=== PATIENT | female | born 1990 | race Caucasian/White ===

== ENCOUNTER 2023-08-04 09:15 | Outpatient (CLI) | payer BC, SELFPAY | END 2023-08-04 09:16 | disposition home or self-care (01) | LOC: NFLDREF 08-08 14:37 | PROVIDERS: PCP Family Medicine; Referring Provider Family Medicine; Visit Provider Family Medicine | DX: Z00.00 Encounter for general adult medical examination without abnormal findings (principal); Z13.6 Encounter for screening for cardiovascular disorders; Z13.1 Encounter for screening for diabetes mellitus | CPT/HCPCS: 80061; 82947; 85025 ==

== ENCOUNTER 2024-07-14 16:33 | Outpatient (CLI) | payer BC, SELFPAY ==
--- OUTSIDE RECORDS SUMMARY | 2024-07-15 06:34 | XMS_ITS | Clinical Summary ---
Author Organization [facility] Address [address] [place] [address] Care Team Providers Care Human Services Worker Name Role Phone Elsewhere, Pcp Primary Care Provider Unavailabl e Source Comments Patient records contain information from all sites at [facility]. For routine questions regarding patient records, call [phone] during business hours, M-F 8:00 AM - 5:00 PM Central Time. Record requests for emergency care only can be directed to [phone] at any time.[facility] Allergies No known active allergies Medications nitrofurantoin monohydrate (Macrobid) 100 mg capsule Take 1 capsule (100 mg total) by mouth 2 (two) times a day for 7 days. 14 capsule 4 06/18/20 24 fluconazole (Diflucan) 150 mg tablet Take 1 tablet (150 mg total) by mouth once a week for 14 days. 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, in [place], [place] [address] [place] [phone] Manjinder Resendez M.D. Dysuria (Primary Dx) 06/11/2024 Nurse Triage Department of Internal Medicine in [place], [place] [address] [place] [phone] Toro Dumont R.N. Urinary Frequency from Last 3 Months Family History Medical History Relation Name Comments Breast cancer Paternal Grandmother mariya garvin Relation Name Status Comments Paternal Grandmother mariya garvin Social History Tobacco Use Types Packs/Day Years Used Date Smoking Tobacco: Every Day Cigarettes 0.3 17.8 Started: 2006 Smokeless Tobacco: Never Tobacco Cessation:Ready to Q uit: Not Asked; Counseling Given: Not Answered Alcohol Use Standard Drinks/Week Comments Yes 1 (1 standard drink = 0.6 oz pur e alcohol) [facility] Utilities Answer Date Recorded In the past 12 months has e Re-APP, gas, oil, or water [employer] threatened to shut off services in your home? No 06/11/2024 Humiliation, Afraid, Rape, and Kick questionnair e Answer Date Recorded Within the last year, have y ou been afraid of your partner or ex-partner? No 03/31/2020 Within the last year, have y ou been humiliated or emotionally abused in other ways by your partner or ex-partner? No Within the last year, have y ou been kicked, hit, slapped, or otherwise physically hurt by your partner or ex-partner? No 03/31/2020 Within the last year, have y ou been raped or forced to have any kind of sexual activity by your partner or ex-partner? No 03/31/2020 Social Connection and Isolation Panel [NHANES] A nswer Date Recorded In a typical week, how many times do you talk on the phone with family, friends, or neighbors? Twice a week 03/31/20 20 How often do you get togethe r with friends or relatives? Twice a week 03/31/2020 How often do you attend chur ch or muslim services? Never 03/31/2020 Do you belong to any clubs o r organizations such as rastafarian groups, unions, fraternal or athletic groups, or school groups? No 03/31/2020 How often do you attend meet ings of the clubs or organizations you belong to? Never 03/31/2020 Are you , , di vorced, , never , or living with a partner? Living with partner 03/31/2020 AUDIT-C Answer Date Recorded Q1: How often do you have a drink containing alc ohol? 2-4 times a month 03/31/2020 Q2: How many drinks containi ng alcohol do you have on a typical day when you are drinking? 1 or 2 03/31/2020 Q3: How often do you have si x or more drinks on one occasion? Never 03/31/2020 Overall Financial Resource Strain (CARDIA) Answe r Date Recorded How hard is it for you to pa y for the very basics like food, housing, medical care, and heating? Not very hard 03/31/2020 PHQ-2 Answer Date Recorded PHQ-2 Score 0 06/11/2024 [facility] - Occupational Stress Questionnaire Answer Date Recorded Do you feel stress - tense, restless, nervous, or anxious, or unable to sleep at night because your mind is troubled all the time - these days? To some extent 03/31/2020 Exercise Vital Sign Answer Date Recorde d On average, how many days pe r week do you engage in moderate to strenuous exercise (like a brisk walk)? 3 days Minutes of Exercise per Session Not on file 06/11/2024 Hunger Vital Sign Answer Date Recorded Within the past 12 months, y ou worried that your food would run out before you got the money to buy more. Never true 06/11/20 Within the past 12 months, t he food you bought just didn't last and you didn't have money to get more. Never true 06/11/2024 PRAPARE - Transportation Answer Date Re corded In the past 12 months, has l ack of transportation kept you from medical appointments or from getting medications? No 05/17 In the past 12 months, has l ack of transportation kept you from meetings, work, or from getting things needed for daily living? No 06/11/2024 Nutrition Answer Date Recorded On average, how many serving s of fruits and vegetables do you eat per day (serving size is equal to 1 cup or approximately the size of a tennis ball)? 0-2 06/11/2024 Dental Answer Date Recorded Dental: Regular Dentist Yes 06/11/20 Employment Answer Date Recorded Employment status Employed and actively working without restrictions 06/11/2024 Housing Stability Answer Date Recorded What is your living situation today? I have a [facility] place to live 06/11/2024 Education Answer Date Recorded What is the highest level of school you have completed or the highest degree you have received? 12th grade 03/31/2020 Comments Unknown Sex and Gender Information Value Date Recorded Sex Assigned at Female 06/11/2024 10:41 AM CDT Legal Sex Female 11:42 AM PIG MACHINE SUPERVISOR Gender Identity Female 10/05/2020 7:42 PM PIG MACHINE SUPERVISOR Sexual Orientation Straight 10/05/2020 7: 42 PM PIG MACHINE SUPERVISOR Last Filed Vital Signs Vital Sign Reading Time Taken Comments Blood Pressure 113/76 06/11/2024 10:47 AM CDT Pulse 64 06/11/2024 10:47 AM CDT Temperature 36.1 ??C (97 ??F) 06/11/2024 10:47 AM CDT Respiratory Rate 14 03/31/2020 12:05 PM CDT Oxygen Saturation 100% 10/10/2020 8:20 AM PIG MACHINE SUPERVISOR Inhaled Oxygen Concentration - - Weight 81.9 kg (180 lb 8.9 oz) 06/11/2024 10:47 AM CDT Height - - Body Mass Index - - Plan of Treatment Health Maintenance Due Date Last Done Comments HIV Screening 1991 Hepatitis C Screening 1991 Pneumococcal vaccine (0-64 y ears) (1 of 2 - PCV) 1997 Tobacco Cessation counseling 03/31/2021 03/31/2020 Cervical/Vaginal Cancer Screening 10/27/2022 020, 10/16/2016 COVID-19 Vaccine (3 - 2023-2 5 season) 2024 11/13/2021, 01/31/2021 Influenza Vaccine (#1) 2024 1, 08/17/2009, 06/02/2009 DTaP,Tdap,and Td Vaccines (8 - Td or Tdap) 08/06/2033 08/06/2023, 11/25/2011, 01/24/2009, Additional history exists IPV Vaccines Completed 11/11/1996, 09/16, 04/13/1992, Additional history exists Hepatitis B Vaccines Completed 06/28/1998, 05/01/1998, 1991 HPV Vaccines Completed 09/14/2009, 12/11/2008, 04/17/2009, Additional history exists Depression Screening (Annual PHQ-2) Completed 06/11/2024, 06/11/2024 Procedures Procedure Name Priority Date/Time Associated Diagnosis Comments MD URINALYSIS AUTO WO MICRO STAT 06/11/2024 10:49 AM CDT URINALYSIS WITH MICROSCOPIC IF INDICATED, U STAT 06/11/2024 10:49 AM CDT Dysuria BACTERIAL CULTURE, AEROBIC + SUSC, URINE STAT 06/11/2024 10:49 AM CDT Dysuria from Last 3 Months Results * (ABNORMAL) Urinalysis with Microscopic if Indicated (06/11/2024 10:49 AM CDT) Source Urine, Urine, Midstream 06/11/2024 11:00 AM CDT OWAT Clarity Cloudy(A) Clear 06/11/2024 11:00 AM CDT OWAT Color Yellow 06/11/2024 11:00 AM CDT OWAT Comment: ----REFERENCE VALUE---- Colorless Yellow Safia Blood Negative Negative 06/11/2024 11:00 AM CDT OWAT Nitrite Negative Negative 06/11/2024 11:00 AM CDT OWAT Leukocyte Esterase Moderate(A) Negative 06/11/2024 11:00 AM CDT OWAT Protein Negative mg/dL 06/11/2024 11:00 AM CDT OWAT Comment: ----REFERENCE VALUE---- Negative Trace Glucose Negative Negative mg/dL 06/11/2024 11:00 AM CDT OWAT Ketone Trace(A) Negative mg/dL 06/11/2024 11:00 AM CDT OWAT Bilirubin Negative Negative 06/11/2024 11:00 AM CDT OWAT pH 7.0 5.0 - 8.0 06/11/2024 11:00 AM CDT OWAT Specific [place] 1.024 1.001 - 1.035 06/11/2024 11:00 AM CDT OWAT Urobilinogen 1.0 0.2 - 1.0 mg/dL 06/11/2024 11:00 AM CDT OWAT Urine (Urine, Midstream) 06/11/2024 10:49 AM CDT 06/11/2024 10:57 AM CDT us Manjinder Resendez M.D. LAB URINE ORDERABLES Final R esult Performing Organization Address City/[facility]/ZIP Co de Phone Number [facility] [address] [place] [address], [place] OWAT [facility] [place] [address] [place] [address] * (ABNORMAL) Microscopic Automated (06/11/2024 10:49 AM CDT) White Blood Cells 21-30(A) /hpf 06/11/2024 11:03 AM CDT OWAT Comment: ----REFERENCE VALUE---- Males: 0-3 Females: 0-10 Unknown: 0-10 Red Blood Cells Occ-2 0 - 2 /hpf 06/11/2024 11:03 AM CDT OWAT Hyaline Casts 1-3 /lpf 06/11/2024 11:03 AM CDT OWAT Squamous Cells 4-10 /hpf 06/11/2024 11:03 AM CDT OWAT Bacteria Present(A) None Seen 06/11/2024 11:03 AM CDT OWAT Urine 06/11/2024 10:4 9 AM CDT 06/11/2024 10:57 AM CDT us Manjinder Resendez M.D. LAB URINE ORDERABLES Final R esult Performing Organization Address City/[facility]/ZIP Co de Phone Number [facility] [address] [place] [address], [place] OWAT [facility] [place] [address], [place] [address] * Bacterial Culture, Aerobic + Susceptibility, Urine (06/11/2024 10:49 AM CDT) Urine Culture Urogenital microbiota, susceptibilities not performed per laboratory criteria. 06/12/2024 7:39 AM CDT MKTO Urine (Urine, Midstream) 06/11/2024 10:49 AM CDT 06/11/2024 1:43 PM CDT Comment:Specimen Source Site : Urine Manjinder Resendez M.D. LAB MICROBIOLOGY - GENERAL O RDERABLES Final Result [facility] [address] [place] [address], [place] [facility] [place] [address] [place] [address] from Last 3 Months Insurance [facility] Care Teams Human Services Worker Relationship Specialty Start Date End Date Elsewhere, Pcp PCP - General Internal Medicine 03/31/20
--- OUTSIDE RECORDS SUMMARY | 2024-07-15 06:34 | XMS_ITS ---
Author Organization [facility] Address [address] [place] [address] Care Team Providers Care Construction Rigger Name Role Phone Unavailable Unavailable Unavailable Surgery Details Not on file Complications Check Surgery Details section. Procedure Estimated Blood Loss Check Surgery Details section. Procedure Findings Check Surgery Details section. Procedure Specimens Taken Check Surgery Details section.
--- OUTSIDE RECORDS SUMMARY | 2024-07-15 06:34 | XMS_ITS | Referral Summary ---
Author Organization [facility] Address [address] [place] [address] Care Team Providers Care Radio Tower Technician Name Role Phone Elsewhere, Pcp Primary Care Provider Unavailabl e Source Comments Patient records contain information from all sites at [facility]. For routine questions regarding patient records, call [phone] during business hours, M-F 8:00 AM - 5:00 PM Central Time. Record requests for emergency care only can be directed to [phone] at any time.[facility] Encounters Date Type Department Care Team Description 06/11/2024 11:00 AM CDT Office Visit Department of Family Medicine, [facility], in [place], [place] [address] [place] [phone] Manjinder Resendez M.D. Dysuria (Primary Dx) 06/11/2024 Nurse Triage Department of Internal Medicine in [address] [phone] Toro Dumont R.N. 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 Never 03/31/2020 Do you belong to any clubs o r organizations such as sikhism groups, unions, fraternal or athletic groups, or [...] Answer Date Recorded PHQ-2 Score 0 06/11/2024 [facility] - Occupational Stress Questionnaire Answer Date Recorded [...] your living situation today? I have a [facility] place to live 06/11/2024 Education Answer Date Recorded What is the highest level of school you have completed or the highest degree you have received? 12th grade 03/31/2020 Comments Unknown Sex and Gender Information Value Date Recorded Sex Assigned at Female 06/11/2024 10:41 AM CDT Legal Sex Female 11:42 AM MANAGER ECONOMIC Gender Identity Female 10/05/2020 7:42 PM MANAGER ECONOMIC Sexual Orientation Straight 10/05/2020 7: 42 PM MANAGER ECONOMIC Last Filed Vital Signs Vital Sign Reading Time Taken Comments Blood Pressure 113/76 06/11/2024 10:47 AM CDT Pulse 64 06/11/2024 10:47 AM CDT Temperature 36.1 ??C (97 ??F) 06/11/2024 10:47 AM CDT Respiratory Rate 14 03/31/2020 12:05 PM CDT Oxygen Saturation 100% 10/10/2020 8:20 AM MANAGER ECONOMIC Inhaled Oxygen Concentration - - Weight 81.9 kg (180 lb 8.9 oz) 06/11/2024 10:47 AM CDT Height - - Body Mass Index - - Plan of Treatment Not on file Procedures Procedure Name Priority Date/Time Associated Diagnosis Comments [place] URINALYSIS AUTO WO MICRO STAT 06/11/2024 10:49 [...] 8.0 06/11/2024 11:00 AM CDT OWAT Specific [place] 1.024 1.001 - 1.035 06/11/2024 11:00 AM CDT OWAT Urobilinogen 1.0 0.2 - 1.0 mg/dL 06/11/2024 11:00 AM CDT OWAT Urine (Urine, Midstream) 06/11/2024 10:49 AM CDT 06/11/2024 10:57 AM CDT Manjinder Resendez M.D. LAB URINE ORDERABLES Final R esult [facility] [address] [place] [address], [facility] [place] [address] [place] [address] * (ABNORMAL) Microscopic Automated (06/11/2024 10:49 AM [...] M.D. LAB URINE ORDERABLES Final R esult [facility] [address] [place] [address], [place] OW[place] [facility] [place] [address] [place] [address] * Bacterial Culture, Aerobic + Susceptibility, Urine (06/11/2024 10:49 AM CDT) Urine Culture Urogenital microbiota, susceptibilities not performed per laboratory criteria. 06/12/2024 7:39 AM CDT [facility] Urine (Urine, Midstream) 06/11/2024 10:49 AM CDT 06/11/2024 1:43 PM CDT Comment:Specimen Source Site : Urine us Manjinder Resendez M.D. LAB MICROBIOLOGY - GENERAL O RDERABLES Final Result [facility] [address] [place] [address], [place] [facility] [place] [address] [place] [address] from Last 3 Months Insurance [facility] Care Teams Radio Tower Technician Relationship Specialty Start Date End Date Elsewhere, Pcp PCP - General Internal Medicine 03/31/20
--- OUTSIDE RECORDS SUMMARY | 2024-07-15 06:34 | XMS_ITS | Clinical Summary ---
Author Organization [facility] Address [place], [place] [address] Care Team Providers Care User Experience Lead Name Role Phone Clinic, No Pcp Or Primary Care Provider Unavaila ble Allergies No known active allergies Medications Medication Sig Dispensed Refills Start Date End Date Status naproxen (NAPROSYN) 500 mg tabletIndications:Sac rococcygeal disorders, not elsewhere classified Take 1 tablet (500 mg total) by mouth 2 (two) times a day as needed for pain . 60 tablet 03/31/2020 Active cyclobenzaprine (FLEXERIL) 10 mg tabletIndications:Sac rococcygeal disorders, not elsewhere classified Take 1 tablet (10 mg total) by mouth at bedtime as needed for muscle spasms. 20 tablet 03/31/2020 Active Digestive Enzymes capsule Take by mouth. 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 Immunizations Name Administration Dates Next Due DTP 10/10/1992, 2,01/14/1992,11/12/18 92 DTaP 11/11/1996 HIB PRP-OMP (PedvaxHIB) 01/14/1992 Hepatitis A (Peds) 07/30/2010 Hepatitis B (Peds) 10/17/1998,06/28/1998, 998 Human Papilloma Virus Vaccine 09/14/2009, 009,12/23/2008 06/23/2009 Influenza, IIV3 (Age >=3 years) 06/02/2009 MMR 11/11/1996,10/10/1992 Meningococcal Vaccine (Menactra) 12/23/2008 Oral Polio Vaccine 11/11/1996, 2,01/14/1992,11/12/18 92 Td (Age >=7 Years) 04/20/2004 Tdap 11/25/2011 Tuberculin (PPD) 11/11/1996 Family History Medical History Relation Name Comments Asthma Brother Onel Alcohol/Drug Father Gómez GI Disease Maternal Grandmother diverti culitis Seizures Mother Gladis Diabetes Other MGGF Relation Name Status Comments Brother Onel Father Gómez Maternal Grandmother Mother Gladis Other Social History Tobacco Use Types Packs/Day Years Used Date Smoking Tobacco: Every Day Cigarettes Smokeless Tobacco: Never Comments:onset age 16 Alcohol Use Standard Drinks/Week Comments Yes 0 (1 standard drink = 0.6 oz pur e alcohol) Sex and Gender Information Value Date Recorded Sex Assigned at Not on file Gender Identity Not on file Sexual Orientation Not on file Obstetrics History Last Filed Vital Signs Vital Sign Reading Time Taken Comments Blood Pressure 116/80 05/12/2021 11:27 AM CDT Pulse 74 05/12/2021 11:27 AM CDT Temperature 36.8 ??C (98.3 ??F) 05/12/2021 11:27 AM C DT Respiratory Rate 14 05/12/2021 11:27 AM CDT Oxygen Saturation 100% 05/12/2021 11:27 AM CDT Inhaled Oxygen Concentration - - Weight 77.6 kg (171 lb) 05/12/2021 11:37 AM CDT Height 174 cm (5' 8.5) 12/23/2008 3:49 PM CDT Body Mass Index - - Plan of Treatment Health Maintenance Due Date Last Done Comments Depression screening for age 12+ 2003 BMI (ht and wt on same day) for age 18+ 2009 Hepatitis C screening for age 18-79 2009 12/23/2008 Tetanus booster 11/24/2021 11/25/2011, 04/20/2004 Pap test for age 21-65 10/27/2022 0, 10/16/2016, 06/12/2011, Additional history exists COVID-19 vaccine series ( season) 2024 01/31/2021 Influenza for age 9-49 05/16/2024 06/02/2009 HIV for age 15-65 Completed 12/23/2008 Tdap Completed 11/25/2011 Pneumococcal series for age 6-64 Aged Out No longer eligible based on patient's age to complete this topic Procedures Procedure Name Priority Date/Time Associated Diagnosis Comments JUNIOR ESTIMATOR THIN PREP PAP SCREEN IMAGED Routine 10/27/2019 1:15 PM EARLY MORNING BABYSITTER ANTI HIV 1/2 Routine 12/23/2008 4:10 PM CDT Screening for STDs (Sexually Transmitted Diseases) ANTI HCV Routine 12/23/2008 4:10 PM CDT Screening for STDs (Sexually Transmitted Diseases) from Last 3 Months or Most Recently Relevant to Health Maintenance Results * JUNIOR ESTIMATOR THIN PREP PAP SCREEN IMAGED (10/27/2019 1:15 PM EARLY MORNING BABYSITTER) Case Report Gynecologic Cytology Report ? Case: [id number] ? Authorizing Provider: ??Court Collado MD ??Collected: ? 10/27/2019 1315 ? Ordering Location: ? [facility] ?Received: ?10/28/2019 1631 ? First Screen: ?Rosi, Diogenes ? Specimen: ?JUNIOR ESTIMATOR ThinPrep Vial Screening, Cervical/Vaginal ? 11/07/2019 11:36 AM [facility] [employer] [facility] INTERPRETATION/ RESULT NEGATIVE FOR INTRAEPITHELIAL LESION OR MALIGNANCY (NIL) (none) 11/07/2019 11:36 AM [facility] IMEN ADEQUACY Satisfactory for evaluation No endocervical component seen 11/07/2019 11:36 AM [facility] HPV REQUEST HPV if ASCUS 11/07/2019 11:36 AM [facility] Date of LMP 10/12/2019 11/07/2019 11:36 AM [facility] Menstrual Status 11/07/2019 11:36 AM [facility] Comment:iud Additional Information 11/07/2019 11:36 AM [facility] Comment: Interpreted at [facility] - [address] [place] [address], [place] [address] Automated Review Successful 11/07/2019 11:36 AM [facility] Comment:Specimen processed s uccessfully by automated combat information center officer device, ThinPrep Imaging System, [employer] Note The pap test is a screening technique, not a diagnostic procedure. It is used primarily to screen for squamous cancers and precursor lesions. Published studies have shown that it is subject to both false negative and false positive results. The pap test should not be used as the sole means to diagnose or exclude pre-malignant and malignant lesions. 11/07/2019 11:36 AM [facility] Other (Cervical/Vagina l) 10/27/2019 1:15 PM EARLY MORNING BABYSITTER 10/28/2019 4:31 PM EARLY MORNING BABYSITTER Court Collado MD PATHOLOGY/[facility] [address] [place] [address], [place] * ANTI HCV (12/23/2008 4:10 PM CDT) ANTI HCV Non-reacti ve [facility] Blood specimen (specimen) BLOOD SPECIMEN / Unknown 12/23/2008 4:10 PM CDT 12/24/2008 9:33 AM CDT Hever Mane DO SEND OUTS [facility] [place]NAL ZIP [address] [address] * ANTI HIV 1/2 (12/23/2008 4:10 PM CDT) ANTI HIV 1/2 Non-reacti ve [facility] Blood specimen (specimen) BLOOD SPECIMEN / Unknown 12/23/2008 4:10 PM CDT 12/24/2008 9:33 AM CDT Hever Mane DO SEND OUTS Performing Organization Address City/[facility]/ZIP Co de Phone Number [facility] INTERNAL ZIP [address] [place] [phone] from Last 3 Months or Most Recently Relevant to Health Maintenance Care Teams User Experience Lead Relationship Specialty Start Date End Date Clinic, No Pcp Or . PCP - General 05/12/21
--- OUTSIDE RECORDS SUMMARY | 2024-07-15 06:34 | XMS_ITS | Encounter Summary ---
Author Organization [facility] Address [address] [place] [address] Care Team Providers Care Supervisor Contingents Name Role Phone Elsewhere, Pcp Primary Care Provider Unavailabl e Reason for Visit * Reason Comments Urinary Problem 1 week * Appointment Request (Routine) - Closed Specialty Diagnoses / Procedures Referred By Pilar crouch Referred To Contact Family Medicine Referral ID Status Reason Start Date Expiration Date Visits Re quested Visits Authorized [id number] Closed 06/11/2024 06/11/2025 1 1 Encounter Details Date Type Department Care Team (Late st Contact Info) Description 06/11/2024 11:00 AM CDT Office Visit Department of Family Medicine, [facility], in [place], [place] [address] [phone] Manjinder Resendez M.D. [address] [phone] Dysuria (Primary Dx) Social History Tobacco Use Types Packs/Day Years Used Date Smoking Tobacco: Every Day Cigarettes 0.3 17.8 Started: 2006 Smokeless Tobacco: Never Tobacco Cessation:Ready to Q uit: Not Asked; Counseling Given: Not Answered Alcohol Use Standard Drinks/Week Comments Yes 1 (1 standard drink = 0.6 oz pur e alcohol) [facility] Utilities Answer Date Recorded In the past 12 months has e electric, gas, oil, or water company threatened to shut off services in your [...] often do you attend chur ch or methodist services? Never 03/31/2020 Do you belong to any clubs o r organizations such as roman catholic groups, unions, fraternal or athletic groups, or [...] Answer Date Recorded PHQ-2 Score 0 06/11/2024 [facility] of Occupat ional Health - Occupational Stress [...] money to buy more. Never true 06/11/20 24 Within the past 12 months, t he [...] your living situation today? I have a [facility] place to live 06/11/2024 Education Answer Date Recorded What is the highest level of school you have completed or the highest degree you have received? 12th grade 03/31/2020 Comments Unknown Sex and Gender Information Value Date Recorded Sex Assigned at Female 06/11/2024 10:41 AM CDT Legal Sex Female 11:42 AM STRIPE MARKER Gender Identity Female 10/05/2020 7:42 PM STRIPE MARKER Sexual Orientation Straight 10/05/2020 7: 42 PM STRIPE MARKER documented as of this encounter Last Filed Vital Signs Vital Sign Reading Time Taken Comments Blood Pressure 113/76 06/11/2024 10:47 AM CDT Pulse 64 06/11/2024 10:47 AM CDT Temperature 36.1 ??C (97 ??F) 06/11/2024 10:47 AM CDT Respiratory Rate - - Oxygen Saturation - - Inhaled Oxygen Concentration - - Weight 81.9 kg (180 lb 8.9 oz) 06/11/2024 10:47 AM CDT Height - - Body Mass Index - - documented in this encounter Progress Notes * Manjinder Resendez M.D. - 06/11/2024 11:00 AM CDT SUBJECTIVE CHIEF COMPLAINT/REASON FOR VISIT Karissa Kapadia is a 33 y.o. female that presents with concern for possible UTI. No other concerns today. She has had UTI episodes in the distant past. No fever, chills or back pain noted. CURRENT MEDICATIONS Current Outpatient Medications: fluconazole (Diflucan) 150 mg tablet, Take 1 tablet (150 mg total) by mouth once a week for 14 days., Disp: 2 tablet, Rfl: 0 nitrofurantoin monohydrate (Macrobid) 100 mg capsule, Take 1 capsule (100 mg total) by mouth 2 (two) times a day for 7 days., Disp: 14 capsule, Rfl: 0 ALLERGIES/CONTRAINDICATIONS No Known Allergies OBJECTIVE Vitals: 06/11/24 1047 BP: 113/76 Pulse: 64 Temp: 36.1 ??C PHYSICAL EXAMINATION General Appearance: No acute distress. Back: CVA areas not tender on exam. DIAGNOSTICS UA with 21-30 WBCs and bacteria. Culture pending. ASSESSMENT / PLAN Probable UTI. Macrobid prescribed. All questions are discussed and answered. Patient voices good understanding and agreement with our plan. Follow-up with primary care if not improving as expected orotherwise as needed. documented in this encounter Plan of Treatment Not on file documented as of this encounter Procedures Procedure Name Priority Date/Time Associated Diagnosis Comments URINALYSIS WITH MICROSCOPIC IF INDICATED, U STAT 06/11/2024 10:49 AM CDT Dysuria MT URINALYSIS AUTO WO MICRO STAT 06/11/2024 10:49 AM CDT BACTERIAL CULTURE, AEROBIC + SUSC, URINE STAT 06/11/2024 10:49 AM CDT Dysuria documented in this encounter Results * (ABNORMAL) Microscopic Automated (06/11/2024 10:49 AM [...] ORDERABLES Final R esult Performing Organization Address City/[facility] Co de Phone Number [facility] [address] [place] [address], [place] [facility] [facility] [place] [address] [place] [address] * Bacterial Culture, Aerobic + Susceptibility, Urine (06/11/2024 10:49 AM CDT) Pathologist [facility] Urine Culture Urogenital microbiota, susceptibilities not performed per laboratory criteria. 06/12/2024 7:39 AM CDT [facility] Urine (Urine, Midstream) 06/11/2024 10:49 AM CDT 06/11/2024 1:43 PM CDT Comment:Specimen Source Site : Urine us Manjinder Resendez M.D. LAB MICROBIOLOGY - GENERAL O RDERABLES Final Result Performing Organization Address City/[facility]/ZIP Co de Phone Number [facility] [address] [place] [address], [place] [facility] [place] [address] [place] [address] * (ABNORMAL) Urinalysis with Microscopic if Indicated [...] 8.0 06/11/2024 11:00 AM CDT OWAT Specific [place] 1.024 1.001 - 1.035 06/11/2024 11:00 AM CDT OWAT Urobilinogen 1.0 0.2 - 1.0 mg/dL 06/11/2024 11:00 AM CDT OWAT Urine (Urine, Midstream) 06/11/2024 10:49 AM CDT 06/11/2024 10:57 AM CDT us Manjinder Resendez M.D. LAB URINE ORDERABLES Final R esult [facility] [address] [place] [address], [place] [facility] [facility] [place] [address] [place] [address] documented in this encounter Visit Diagnoses Diagnosis Dysuria- Primary documented in this encounter Care Teams Supervisor Contingents Relationship Specialty Start Date End Date Elsewhere, Pcp PCP - General Internal Medicine 03/31/20 documented as of this encounter
--- OUTSIDE RECORDS SUMMARY | 2024-07-15 06:34 | XMS_ITS | Encounter Summary ---
Author Organization [facility] Address [address] [place] [address] Care Team Providers Care Police Communications Dispatcher Name Role Phone Elsewhere, Pcp Primary Care Provider Unavailabl e Reason for Visit * Reason Onset Date Comments Urinary Frequency 06/11/2024 Encounter Details Date Type Department Care Team ([facility] st Contact Info) Description 06/11/2024 Nurse Triage Department of Internal Medicine in [place], [place] [address] [place] [phone] Toro Dumont R.N. [address] [place] [phone] Urinary Frequency Social History Tobacco Use Types Packs/Day Years Used Date Smoking Tobacco: Every Day Cigarettes 0.3 17.8 Started: 2006 Smokeless Tobacco: Never Alcohol Use Standard Drinks/Week Comments Yes 1 (1 standard drink = 0.6 oz pur e alcohol) [facility] Utilities Answer Date Recorded In the past [address] [facility] path intelligence, gas, oil, or water [employer] threatened to shut off services in your [...] often do you attend chur ch or samaritan services? Never 03/31/2020 Do you belong to any clubs o r organizations such as mormonism groups, unions, fraternal or athletic groups, or [...] Answer Date Recorded PHQ-2 Score 0 06/11/2024 [facility] - Occupational Stress Questionnaire Answer Date [...] your living situation today? [facility] 06/11/2024 Education Answer Date Recorded What is the highest level of school you have completed or the highest degree you have received? 12th grade 03/31/2020 Comments Unknown Sex and Gender Information Value Date Recorded Sex Assigned at Female 06/11/2024 10:41 AM CDT Legal Sex Female 11:42 AM PURCHASING CLERK Gender Identity Female 10/05/2020 7:42 PM PURCHASING CLERK Sexual Orientation Straight 10/05/2020 7: 42 PM PURCHASING CLERK documented as of this encounter Miscellaneous Notes * Telephone Encounter - Toro Dumont R.N. - 06/11/2024 8:01 AM CDT Chief Complaint / Reason for Call Patient is a 33 y.o. female calling regarding Urinary Frequency. Assessment Concern: urinary frequency and pressure, chills, feeling off Present for: 7 days Home cares tried: fluids Calling to request: UA The recommended disposition is See a health care provider within 24 hours. Patient was warm transferred toEdith Patient Appointment Client Application Support Engineer at the clinic forfurther assistance. Reason for Disposition Urinating more frequently than usual (i.e., frequency) Protocols used: Urinary Spqyokuf-[id number]-XS Care Advice Patient/Caregiver understands and will follow care advice?: Yes, able to teach back Urinary [id number]-[id number]-HW Nurse Toro Ribeiro Jun 11, 2024 08:03 AM Care Advice SEE PCP WITHIN 24 HOURS: * IF OFFICE WILL BE OPEN: You need to be examined within the next 24 hours. Call your doctor (or POWER HOUSE ENGINEER/PA) when the office opens and make an appointment. * IF OFFICE WILL BE CLOSED: You need to be seen within the next 24 hours. A clinic or an urgent care center is often a good source of care if your doctor's office is closed or you can't get an appointment. * IF PATIENT HAS NO PCP: Refer patient to a clinic or urgent care center. Also try to help caller find a PCP for future care. NOTE TO TRIAGER: * Use nurse judgment to select the most appropriate source of care. * Consider both the urgency of the patient's symptoms AND what resources may be needed to evaluate and manage the patient. DRINK PLENTY OF LIQUIDS: * Drink plenty of liquids. It is important to stay well-hydrated. * A healthy adult should drink 8 cups (240 ml) or more of liquid each day. * How can you tell if you are drinking enough liquids? The goal is to keep the urine clear or light-yellow in color. If your urine is bright yellow or dark yellow, you are probably not drinking enough liquids. * Caution: Some medical problems require fluid restriction. CALL BACK IF: * Fever occurs * Unable to urinate and bladder feels full * You become worse CARE ADVICE given per Urinary Symptoms (Adult) guideline. documented in this encounter Plan of Treatment Not on file documented as of this encounter Visit Diagnoses Not on filedocumented in this encounter Care Teams Police Communications Dispatcher Relationship Specialty Start Date End Date Elsewhere, Pcp PCP - General Internal Medicine 03/31/20 documented as of this encounter
== END 2024-07-14 16:34 | disposition home or self-care (01) ==
LOC: NFLDREF 07-15 06:32
PROVIDERS: PCP Family Medicine; Referring Provider Family Medicine; Visit Provider Internal Medicine
DX: R10.9 Unspecified abdominal pain (principal)
CPT/HCPCS: 87086

== ENCOUNTER 2024-07-21 15:43 | Outpatient (CLI) | payer BC, SELFPAY ==
--- OUTSIDE RECORDS SUMMARY | 2024-07-21 15:46 | XMS_ITS | Clinical Summary ---
Author Organization [employer] [facility] [facility] Address [place], [place] [address] Care Team Providers Care Integration Consultant Name Role Phone Clinic, No Pcp Or [...] Date Acne Overview (12/23/2008): on accutane from land agent Immunizations Name Administration Dates Next Due DTP [...] Procedure Name Priority Date/Time Associated Diagnosis Comments FIELD CHECKER THIN PREP PAP SCREEN IMAGED Routine 10/27/2019 1:15 PM [facility]ILD [facility] ANTI HIV 1/2 Routine 12/23/2008 4:10 PM CDT Screening for STDs (Sexually Transmitted Diseases) ANTI HCV Routine 12/23/2008 4:10 PM CDT Screening for STDs (Sexually Transmitted Diseases) from Last 3 Months or Most Recently Relevant to Health Maintenance Results * FIELD CHECKER THIN PREP PAP SCREEN IMAGED (10/27/2019 1:15 PM WILD OYSTER HARVESTER) Case Report Gynecologic Cytology Report ? Case: [id number] ? Authorizing Provider: ??Court Collado MD ??Collected: ? 10/27/2019 1315 ? Ordering Location: ? [facility] ?Received: ?10/28/2019 1631 ? First Screen: ?Rosi, Diogenes ? Specimen: ?FIELD CHECKER ThinPrep Vial Screening, Cervical/Vaginal ? 11/07/2019 11:36 AM [facility] [employer] [facility] INTERPRETATION/ RESULT NEGATIVE FOR INTRAEPITHELIAL LESION OR MALIGNANCY (NIL) (none) 11/07/2019 11:36 AM [facility] IMEN ADEQUACY Satisfactory for evaluation No endocervical component seen 11/07/2019 11:36 AM [facility] HPV REQUEST HPV if ASCUS 11/07/2019 11:36 AM [facility] Date of LMP 10/12/2019 11/07/2019 11:36 AM [facility] Menstrual Status 11/07/2019 11:36 AM [facility] Comment:iud Additional Information 11/07/2019 11:36 AM [facility] Comment: Interpreted at [facility] - [address] [place] [address], [place] [address] Automated Review Successful 11/07/2019 11:36 AM [facility] Comment:Specimen processed s uccessfully by automated track laminating machine tender device, ThinPrep Imaging System, [employer] Note The pap test is a screening technique, not a diagnostic procedure. It is used primarily to screen for squamous cancers and precursor lesions. Published studies have shown that it is subject to both false negative and false positive results. The pap test should not be used as the sole means to diagnose or exclude pre-malignant and malignant lesions. 11/07/2019 11:36 AM [facility] Other (Cervical/Vagina l) 10/27/2019 1:15 PM WILD OYSTER HARVESTER 10/28/2019 4:31 PM WILD OYSTER HARVESTER Court Collado MD PATHOLOGY/[facility] [address] [place] [address], [place] * ANTI HCV (12/23/2008 4:10 PM CDT) ANTI HCV Non-reacti ve [facility] Blood specimen (specimen) BLOOD SPECIMEN / Unknown 12/23/2008 4:10 PM CDT 12/24/2008 9:33 AM CDT Hever Mane DO SEND OUTS [facility] INTERNAL ZIP [address] [address] * ANTI HIV 1/2 (12/23/2008 4:10 PM CDT) ANTI HIV 1/2 Non-reacti ve [facility] Blood specimen (specimen) BLOOD SPECIMEN / Unknown 12/23/2008 4:10 PM CDT 12/24/2008 9:33 AM CDT Hever Mane DO SEND OUTS Performing Organization Address City/[facility]/ZIP Co de Phone Number [facility] INTERNAL ZIP [address] [place] [address] from Last 3 Months or Most Recently Relevant to Health Maintenance Care Teams Integration Consultant Relationship Specialty Start Date End Date Clinic, No Pcp Or . PCP - General 05/12/21
--- OUTSIDE RECORDS SUMMARY | 2024-07-21 15:46 | XMS_ITS | Encounter Summary ---
Author Organization [facility] Address [address] [place] [address] Care Team Providers Care General Manager Farm Name Role Phone Elsewhere, Pcp Primary Care Provider Unavailabl e Reason for Visit * Reason Comments Urinary Problem 1 week * Appointment Request (Routine) - Closed Specialty Diagnoses / Procedures Referred By Pilar crouch Referred To Contact Family Medicine Referral ID Status Reason Start Date Expiration Date Visits Re quested Visits Authorized [id number] Closed 06/11/2024 06/11/2025 1 1 Encounter Details Date Type Department Care Team (Late st Contact Info) Description 06/11/2024 11:00 AM CDT Office Visit Department of Family Medicine, [facility], in [place], [place] [address] [phone] Manjinder Resendez M.D. [address] [phone] Dysuria (Primary Dx) Social History Tobacco Use Types Packs/Day Years Used Date Smoking Tobacco: Every Day Cigarettes 0.3 17.8 Started: 2006 Smokeless Tobacco: Never Tobacco Cessation:Ready to Q uit: Not Asked; Counseling Given: Not Answered Alcohol Use Standard Drinks/Week Comments Yes 1 (1 standard drink = 0.6 oz pur e alcohol) [facility] Utilities Answer Date Recorded In the past [...] often do you attend chur ch or moravian services? Never 03/31/2020 Do you belong to any clubs o r organizations such as pentecostal groups, unions, fraternal or athletic groups, or [...] Answer Date Recorded PHQ-2 Score 0 06/11/2024 [facility] of Occupat ional Health - Occupational Stress [...] your living situation today? I have a [facility] place to live 06/11/2024 Education Answer Date Recorded What is the highest level of school you have completed or the highest degree you have received? 12th grade 03/31/2020 Comments Unknown Sex and Gender Information Value Date Recorded Sex Assigned at Female 06/11/2024 10:41 AM CDT Legal Sex Female 11:42 AM DRYWALL HANGER HELPER Gender Identity Female 10/05/2020 7:42 PM DRYWALL HANGER HELPER Sexual Orientation Straight 10/05/2020 7: 42 PM DRYWALL HANGER HELPER documented as of this encounter Last Filed [...] U STAT 06/11/2024 10:49 AM CDT Dysuria OR URINALYSIS AUTO WO MICRO STAT 06/11/2024 10:49 [...] ORDERABLES Final R esult Performing Organization Address City/[facility] Co de Phone Number [facility] [address] [place] [address], [place] [address] [facility] [place] [address] [place] [address] * Bacterial Culture, Aerobic + Susceptibility, Urine (06/11/2024 10:49 AM CDT) Pathologist [facility] Urine Culture Urogenital microbiota, susceptibilities not performed per laboratory criteria. 06/12/2024 7:39 AM CDT [facility] Urine (Urine, Midstream) 06/11/2024 10:49 AM CDT 06/11/2024 1:43 PM CDT Comment:Specimen Source Site : Urine us Manjinder Resendez M.D. LAB MICROBIOLOGY - GENERAL O RDERABLES Final Result Performing Organization Address City/[facility]/ZIP Co de Phone Number [facility] [address] [place] [address], [place] [facility] [place] [address] [place] [address] * (ABNORMAL) Urinalysis with Microscopic if Indicated [...] 8.0 06/11/2024 11:00 AM CDT OWAT Specific [place] 1.024 1.001 - 1.035 06/11/2024 11:00 AM CDT OWAT Urobilinogen 1.0 0.2 - 1.0 mg/dL 06/11/2024 11:00 AM CDT OWAT Urine (Urine, Midstream) 06/11/2024 10:49 AM CDT 06/11/2024 10:57 AM CDT us Manjinder Resendez M.D. LAB URINE ORDERABLES Final R esult [facility] [address] [place] [address], [place] [facility] [facility] [place] [address] [place] [address] documented in this encounter Visit Diagnoses Diagnosis Dysuria- Primary documented in this encounter Care Teams General Manager Farm Relationship Specialty Start Date End Date Elsewhere, Pcp PCP - General Internal Medicine 03/31/20 documented as of this encounter
--- OUTSIDE RECORDS SUMMARY | 2024-07-21 15:46 | XMS_ITS | Encounter Summary ---
Author Organization [facility] Address [address] [place] [address] Care Team Providers Care Russian History Professor Name Role Phone Elsewhere, Pcp Primary Care Provider Unavailabl e Reason for Visit * Reason Onset Date Comments Urinary Frequency 06/11/2024 Encounter Details Date Type Department Care Team ([facility] st Contact Info) Description 06/11/2024 Nurse Triage Department of Internal Medicine in [place], [place] [address] [place] [address] Toro Dumont R.N. [address] [place] [phone] Urinary Frequency Social History Tobacco Use Types Packs/Day Years Used Date Smoking Tobacco: Every Day Cigarettes 0.3 17.8 Started: 2006 Smokeless Tobacco: Never Alcohol Use Standard Drinks/Week Comments Yes 1 (1 standard drink = 0.6 oz pur e alcohol) [facility] Utilities Answer Date Recorded In the past 12 months has [facility] [employer], gas, oil, or water [employer] threatened to shut off services in your [...] often do you attend chur ch or zoroastrianism services? Never 03/31/2020 Do you belong to [...] Answer Date Recorded PHQ-2 Score 0 06/11/2024 [facility] - Occupational Stress Questionnaire Answer Date Recorded [...] your living situation today? [facility] 06/11/2024 Education Answer Date Recorded What is the highest level of school you have completed or the highest degree you have received? 12th grade 03/31/2020 Comments Unknown Sex and Gender Information Value Date Recorded Sex Assigned at Female 06/11/2024 10:41 AM CDT Legal Sex Female 11:42 AM HARNESS MENDER Gender Identity Female 10/05/2020 7:42 PM HARNESS MENDER Sexual Orientation Straight 10/05/2020 7: 42 PM HARNESS MENDER documented as of this encounter Miscellaneous Notes [...] Patient was warm transferred toEdith Patient Appointment Cost Reduction Engineer at the clinic forfurther assistance. Reason for Disposition Urinating more frequently than usual (i.e., frequency) Protocols used: Urinary Uvhqtlgu-UFHTT-GR Care Advice Patient/Caregiver understands and will follow care advice?: Yes, able to teach back Urinary Nopgfefh-LUSAH-[place] Nurse Toro Ribeiro Jun 11, 2024 08:03 AM Care Advice SEE PCP WITHIN 24 HOURS: * IF OFFICE WILL BE OPEN: You need to be examined within the next 24 hours. Call your doctor (or WASHROOM OPERATOR/PA) when the office opens and make an [...] on filedocumented in this encounter Care Teams Russian History Professor Relationship Specialty Start Date End Date Elsewhere, Pcp PCP - General Internal Medicine 03/31/20 documented as of this encounter
--- OUTSIDE RECORDS SUMMARY | 2024-07-21 15:46 | XMS_ITS | Referral Summary ---
Author Organization [facility] Address [address] [place] [address] Care Team Providers Care Screw Machine Setter Name Role Phone Elsewhere, Pcp Primary Care Provider Unavailabl e Source Comments Patient records contain information from all sites at [facility]. For routine questions regarding patient records, call [phone] during business hours, M-F 8:00 AM - 5:00 PM Central Time. Record requests for emergency care only can be directed to [phone] at any time.[facility] Encounters Date Type Department Care Team Description 06/11/2024 11:00 AM CDT Office Visit Department of Family Medicine, [facility], in [place], [place] [address] [place] [phone] Manjinder Resendez M.D. Dysuria (Primary Dx) 06/11/2024 Nurse Triage Department of Internal Medicine in [address] [phone] Toro Dumont RArgeliaNArgelia Urinary Frequency from Last 3 Months Allergies No known active allergies Medications fluconazole (Diflucan) 150 mg tablet Take 1 tablet (150 mg total) by mouth once a week for 14 days. 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 Utilities Answer Date Recorded In the past 12 months has th e electric, gas, oil, or water company [...] often do you attend chur ch or mandaeism services? Never 03/31/2020 Do you belong to any clubs o r organizations such as nondenominational groups, unions, fraternal or athletic groups, or [...] Answer Date Recorded PHQ-2 Score 0 06/11/2024 [facility] of Occupat ional Health - Occupational Stress [...] your living situation today? [facility] 06/11/2024 Education Answer Date Recorded What is the highest level of school you have completed or the highest degree you have received? 12th grade 03/31/2020 Comments Unknown Sex and Gender Information Value Date Recorded Sex Assigned at Female 06/11/2024 10:41 AM CDT Legal Sex Female 11:42 AM DIRECTOR OF STAFF DEVELOPMENT Gender Identity Female 10/05/2020 7:42 PM DIRECTOR OF STAFF DEVELOPMENT Sexual Orientation Straight 10/05/2020 7: 42 PM DIRECTOR OF STAFF DEVELOPMENT Last Filed Vital Signs Vital Sign Reading Time Taken Comments Blood Pressure 113/76 06/11/2024 10:47 AM CDT Pulse 64 06/11/2024 10:47 AM CDT Temperature 36.1 ??C (97 ??F) 06/11/2024 10:47 AM CDT Respiratory Rate 14 03/31/2020 12:05 PM CDT Oxygen Saturation 100% 10/10/2020 8:20 AM DIRECTOR OF STAFF DEVELOPMENT Inhaled Oxygen Concentration - - Weight 81.9 kg (180 lb 8.9 oz) 06/11/2024 10:47 AM CDT Height - - Body Mass Index - - Plan of Treatment Not on file Procedures Procedure Name Priority Date/Time Associated Diagnosis Comments [place] URINALYSIS AUTO WO MICRO STAT 06/11/2024 10:49 [...] 8.0 06/11/2024 11:00 AM CDT [facility] Specific [place] 1.024 1.001 - 1.035 06/11/2024 11:00 AM CDT OWAT Urobilinogen 1.0 0.2 - 1.0 mg/dL 06/11/2024 11:00 AM CDT OWAT Urine (Urine, Midstream) 06/11/2024 10:49 AM CDT 06/11/2024 10:57 AM CDT us Manjinder Resendez M.D. LAB URINE ORDERABLES Final R esult Performing Organization Address [facility]/ZIP Co de Phone Number [facility] [address] [address], [facility] OWAT [facility] in [place] [address] [place] [address] * (ABNORMAL) Microscopic Automated (06/11/2024 10:49 AM [...] M.D. LAB URINE ORDERABLES Final R esult [facility] [address] [place] [address], [place] OW[place] [facility] in [place] [address] [place] [address] * Bacterial Culture, Aerobic + Susceptibility, Urine (06/11/2024 10:49 AM CDT) Urine Culture Urogenital microbiota, susceptibilities not performed per laboratory criteria. 06/12/2024 7:39 AM CDT [facility] Urine (Urine, Midstream) 06/11/2024 10:49 AM CDT 06/11/2024 1:43 PM CDT Comment:Specimen Source Site : Urine Manjinder Resendez M.D. LAB MICROBIOLOGY - GENERAL O RDERABLES Final Result Performing Organization Address City/[facility]/ZIP Co de Phone Number [facility] [address] [place] [address], [place] MK[place] [facility] in [place] [address] [place] [address] from Last 3 Months Insurance [facility] Care Teams Screw Machine Setter Relationship Specialty Start Date End Date Elsewhere, Pcp PCP - General Internal Medicine 7/17/20
--- OUTSIDE RECORDS SUMMARY | 2024-07-21 15:46 | XMS_ITS | Clinical Summary ---
Author Organization [facility] Address [address] [place] [address] Care Team Providers Care Mechanical Project Manager Name Role Phone Elsewhere, Pcp Primary Care Provider Unavailabl e Source Comments Patient records contain information from all sites at [facility]. For routine questions regarding patient records, call [phone] during business hours, M-F 8:00 AM - 5:00 PM Central Time. Record requests for emergency care only can be directed to [phone] at any time.[facility] Allergies No known active allergies Medications fluconazole (Diflucan) 150 mg tablet Take 1 tablet (150 mg total) by mouth once a week for 14 days. 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 Dysuria (Primary Dx) 06/11/2024 Nurse Triage Department of Internal Medicine in [place], [place] [address] [phone] Toro Dumont R.N. Urinary Frequency from [...] drink = 0.6 oz pur e alcohol) [facility] Utilities Answer Date Recorded In the past 12 months has e [employer], gas, oil, or water company threatened to [...] often do you attend chur ch or denominational services? Never 03/31/2020 Do you belong to any clubs o r organizations such as judaism groups, unions, fraternal or athletic groups, or [...] Answer Date Recorded PHQ-2 Score 0 06/11/2024 [facility] [place] of Occupat ional Health - Occupational Stress [...] your living situation today? I have a [facility] place to live 06/11/2024 Education Answer Date Recorded What is the highest level of school you have completed or the highest degree you have received? 12th grade 03/31/2020 Comments Unknown Sex and Gender Information Value Date Recorded Sex Assigned at Female 06/11/2024 10:41 AM CDT Legal Sex Female 11:42 AM HARDWOOD FLOORING SPECIALIST Gender Identity Female 10/05/2020 7:42 PM HARDWOOD FLOORING SPECIALIST Sexual Orientation Straight 10/05/2020 7: 42 PM HARDWOOD FLOORING SPECIALIST Last Filed Vital Signs Vital Sign Reading Time Taken Comments Blood Pressure 113/76 06/11/2024 10:47 AM CDT Pulse 64 06/11/2024 10:47 AM CDT Temperature 36.1 ??C (97 ??F) 06/11/2024 10:47 AM CDT Respiratory Rate 14 03/31/2020 12:05 PM CDT Oxygen Saturation 100% 10/10/2020 8:20 AM HARDWOOD FLOORING SPECIALIST Inhaled Oxygen Concentration - - Weight 81.9 [...] 06/28/1998, 05/01/1998, 1991 HPV Vaccines Completed 09/14/2009, 11/2008, 04/17/2009, Additional history exists Depression Screening (Annual PHQ-2) Completed 06/11/2024, 06/11/2024 Procedures Procedure Name Priority Date/Time Associated Diagnosis Comments [place] URINALYSIS AUTO WO MICRO STAT 06/11/2024 10:49 [...] 8.0 06/11/2024 11:00 AM CDT OWAT Specific [place] 1.024 1.001 - 1.035 06/11/2024 11:00 AM CDT OWAT Urobilinogen 1.0 0.2 - 1.0 mg/dL 06/11/2024 11:00 AM CDT OWAT Urine (Urine, Midstream) 06/11/2024 10:49 AM CDT 06/11/2024 10:57 AM CDT us Manjinder Resendez M.D. LAB URINE ORDERABLES Final R esult [facility] [address] [place] [address], [place] OW[place] [facility] [address] [place] [address] * (ABNORMAL) Microscopic Automated (06/11/2024 10:49 AM [...] ORDERABLES Final R esult Performing Organization Address [facility] Co de Phone Number [facility] [address] [place] [address], [facility] OWAT [facility] [address] [place] [address] * Bacterial Culture, Aerobic + Susceptibility, Urine (06/11/2024 10:49 AM CDT) Urine Culture Urogenital microbiota, susceptibilities not performed per laboratory criteria. 06/12/2024 7:39 AM CDT MKTO Urine (Urine, Midstream) 06/11/2024 10:49 AM CDT 06/11/2024 1:43 PM CDT Comment:Specimen Source Site : Urine us Manjinder Resendez M.D. LAB MICROBIOLOGY - GENERAL O RDERABLES Final Result [facility] [address] [place] [address], [place] [facility] [place] [address] [place] [address] from Last 3 Months Insurance [facility] Care Teams Mechanical Project Manager Relationship Specialty Start Date End Date Elsewhere, Pcp PCP - General Internal Medicine 03/31/20
--- OUTSIDE RECORDS SUMMARY | 2024-07-21 15:46 | XMS_ITS ---
Author Organization [facility] Address [address] [place] [address] Care Team Providers Care Practice Business Asst Name Role Phone Unavailable Unavailable Unavailable Surgery Details Not on file Complications Check Surgery Details section. Procedure Estimated Blood Loss Check Surgery Details section. Procedure Findings Check Surgery Details section. Procedure Specimens Taken Check Surgery Details section.
--- NOTE | 2024-07-21 16:15 | US_ITS ---
Patient: AKIN HEIN Facility:?[facility] Patient ID:?[id number] Site Patient ID:?[id number]. Site :?1990 Study:?US-Pelvis TA/TV-07/21/2024 4:19:32 PM Ordering Physician:Vasyl Good Final Report: INDICATION: Abdominal pain. TECHNIQUE: Ultrasound pelvis transabdominal and transvaginal for better assessment or to better visualize the endometrium. Real-time sonographic images with spectral and color Doppler imaging of the ovaries were obtained. COMPARISON: None. FINDINGS: Uterus is normal in size and echotexture. Uterus measures 6.7 x 4.1 x 4.9 cm. Endometrial canal thickness measures 8 millimeter. No endometrial mass or fluid. Is identified within the lower intrauterine device uterine segment/upper cervix. Right ovary measures 3.0 x 1.5 x 1.8 cm. Left ovary measures 3.8 x 2.1 x 2.5 cm. Preserved arterial and venous blood flow to bilateral ovaries. No concerning adnexal mass. Corpus luteal cyst is identified on the left side. No significant fluid in the cul-de-sac. IMPRESSION: Intrauterine device is identified into the lower uterine segment/upper cervix. Otherwise, normal ultrasound examination of the pelvis. Dictated by Amy Chakraborty MD @ 07/22/2024 1:50:28 PM Signed by:?Amy Chakraborty MD @07/22/2024 1:50:28 PM (Electronic Signature)
== END 2024-07-21 15:44 | disposition home or self-care (01) ==
LOC: US 15:44
PROVIDERS: PCP Family Medicine; Visit Provider Internal Medicine
DX: R10.9 Unspecified abdominal pain (principal)
CPT/HCPCS: 76830; 76856

== ENCOUNTER 2024-10-20 14:43 | Outpatient (CLI) | payer BC, SELFPAY | END 2024-10-20 14:44 | disposition home or self-care (01) | PROVIDERS: PCP Family Medicine; Visit Provider Internal Medicine | DX: R10.9 Unspecified abdominal pain (principal) | CPT/HCPCS: 80053; 84443 ==

== ENCOUNTER 2024-10-28 16:10 | Outpatient (CLI) | payer BC, SELFPAY | END 2024-10-28 16:11 | disposition home or self-care (01) | PROVIDERS: PCP Family Medicine; Visit Provider Internal Medicine | DX: R10.9 Unspecified abdominal pain (principal) | CPT/HCPCS: 74177; Q9967 ==

== ENCOUNTER 2024-11-30 15:09 | Outpatient (CLI) | payer BC, SELFPAY | END 2024-11-30 15:10 | disposition home or self-care (01) | LOC: NFLDREF 15:11 | PROVIDERS: PCP Family Medicine; Visit Provider Family Medicine | DX: R10.9 Unspecified abdominal pain (principal) | CPT/HCPCS: 87086 ==